=== PATIENT | female | born 1995 | race Caucasian/White ===

== ENCOUNTER 2019-01-01 21:52 | Emergency (ER) | payer SELFPAY | END 2019-01-01 22:57 | disposition left against medical advice (07) | LOC: ER 21:52 | DX: Z53.21 Procedure and treatment not carried out due to patient leaving prior to being seen by health care provider (principal) ==

== ENCOUNTER 2022-07-14 20:16 | Emergency (ER) | payer BC ==
[~2022-07-14] VITALS: Ht 154.9 cm; Wt 61.2 kg
[2022-07-14] MEDS ORDERED: KETOROLAC TROMETHAMINE 60 MG/2 ML VIAL IM ONE (20:45)
[2022-07-14] MEDS ORDERED: DEXAMETHASONE SOD PHOS 10 MG/1 ML VIAL IM STA (22:19)
[2022-07-14] MEDS ORDERED: ULTRAM 50MG50 MG PO (22:21)
[2022-07-14 22:31] VITALS: BP 111/82
== END 2022-07-14 22:52 | disposition home or self-care (01) ==
LOC: ER 20:27
DX: M54.50 Low back pain, unspecified (principal); Z88.6 Allergy status to analgesic agent
CPT/HCPCS: 74176; 81025; 99283; J1100; J1885